=== PATIENT | male | born 1950 | race Caucasian/White ===

== ENCOUNTER 2017-04-22 22:22 | Emergency (ER) | payer MEDICARE, MEDICAID ==
[~2017-04-22] VITALS: Ht 193 cm; Wt 60.0 kg
[2017-04-22] MEDS ORDERED: SODIUM CHLORIDE 0.9% 1,000ML IVBOLUS ONE ×2 (22:30→23:00)
[2017-04-22] MEDS ORDERED: GABA600T2 PO (22:58)
[2017-04-22] MEDS ORDERED: TIOT18CA INH (22:58)
[2017-04-22] MEDS ORDERED: ALBU8.5H3 INH (22:58)
[2017-04-22] MEDS ORDERED: FLUT1DIS3 INH (22:58)
[2017-04-22] MEDS ORDERED: NITR4.1S2 TL (22:58)
[2017-04-22] MEDS ORDERED: OXYC30TA PO (22:58)
[2017-04-22] MEDS ORDERED: OXYC-229 PO (22:58)
[2017-04-22] MEDS ORDERED: CARI350T PO (22:58)
[2017-04-22] MEDS ORDERED: AZITHROMYCIN 500 MG in SODIUM CHLORIDE 0.9% 250 ML IV ONE (23:00)
[2017-04-22] MEDS ORDERED: ACETAMINOPHEN 325 MG TABLET PO ONE (23:00)
[2017-04-22] MEDS ORDERED: CEFTRIAXONE PMX 1GM/50ML 50 ML IV ONE (23:00)
[2017-04-22 23:16] LABS: BLOOD UREA NITROGEN 19 mg/dL (7-18)
[2017-04-22 23:22] LABS: IS PT STATUS REG ER OR PRE ER? YES
[2017-04-23] MEDS ORDERED: MORPHINE SULFATE 4 MG/ML, 1ML ONE (00:29)
[2017-04-23] MEDS ORDERED: morphine SULFATE 10 MG/ML, 1ML IVPush ONE (00:30)
[2017-04-23 01:56] VITALS: BP 98/66
== END 2017-04-23 02:00 | disposition left against medical advice (07) ==
LOC: ED 22:50
DX: J15.9 Unspecified bacterial pneumonia (principal); D72.829 Elevated white blood cell count, unspecified; J44.9 Chronic obstructive pulmonary disease, unspecified; G89.29 Other chronic pain; M54.9 Dorsalgia, unspecified; Z90.49 Acquired absence of other specified parts of digestive tract; Z88.0 Allergy status to penicillin; F17.200 Nicotine dependence, unspecified, uncomplicated
CPT/HCPCS: 36415; 71010; 80048; 82040; 83605; 84145; 84484; 85025; 87040; 93005; 96365; 96367; 96375; 99285; J0456; J0696; J2270; J7030; J7050

== ENCOUNTER 2017-08-22 19:22 | Emergency (ER) | payer MEDICARE, MEDICAID ==
[~2017-08-22] VITALS: Ht 193 cm; Wt 63.6 kg
[~2017-08-22 19:22] MED LIST: ALBU8.5H8 INH; CARI350T PO; FLUT1DIS3 INH; GABA600T2 PO; NITR4.1S2 TL; OXYC-302 PO; OXYC-307 PO; OXYC30TA PO; TIOT18CA INH
[2017-08-22 19:26] VITALS: BP 115/73
== END 2017-08-22 19:38 | disposition left against medical advice (07) ==
LOC: ED 19:32
DX: R06.02 Shortness of breath (principal); Z53.21 Procedure and treatment not carried out due to patient leaving prior to being seen by health care provider

== ENCOUNTER 2017-11-29 21:42 | Emergency (ER) | payer MEDICARE, MEDICAID ==
[~2017-11-29] VITALS: Ht 193 cm; Wt 68.0 kg
[2017-11-29] MEDS ORDERED: SODIUM CHLORIDE 0.9% 1,000ML IVBOLUS ONE (22:30)
[2017-11-29 22:50] LABS: BASOPHILS # (AUTO) 0.03 x10^3/uL (0-0.1); BASOPHILS % (AUTO) 0 % (0-1); EOSINOPHILS # (AUTO) 0.05 x10^3/uL (0-0.4); EOSINOPHILS % (AUTO) 1 % (1-7); LYMPHOCYTES # (AUTO) 0.97 x10^3/uL (1-3.4); LYMPHOCYTES % (AUTO) 13 % (22-44); MD NO; MEAN CORPUSCULAR HEMOGLOBIN 32.5 pg (27.5-34.5); MEAN CORPUSCULAR HGB CONC 33.2 g/dL (33.2-36.2); MEAN CORPUSCULAR VOLUME 97.9 fL (81-97); MEAN PLATELET VOLUME 8.7 fL (7.4-10.4); MONOCYTES # (AUTO) 0.45 x10^3/uL (0.2-0.8); MONOCYTES % (AUTO) 6 % (2-9); NEUTROPHILS # (AUTO) 6.22 x10^3/uL (1.8-6.8); NEUTROPHILS % (AUTO) 81 % (42-75); PLATELET COUNT 138 x10^3/uL (130-400); RED BLOOD COUNT 4.35 x10^6/uL (4.38-5.82); RED CELL DISTRIBUTION WIDTH 15.7 % (9.4-14.8)
[2017-11-29] MEDS ORDERED: CEFTRIAXONE PMX 1GM/50ML 50 ML ONE (22:54)
[2017-11-29 23:00] VITALS: BP 112/75
[2017-11-29] MEDS ORDERED: CEFTRIAXONE PMX 1GM/50ML 50 ML IV ONE (23:00)
[2017-11-29] MEDS ORDERED: AZITHROMYCIN 500 MG in SODIUM CHLORIDE 0.9% 250 ML IV ONE (23:00)
[2017-11-29 23:01] LABS: ALANINE AMINOTRANSFERASE 14 U/L (12-78); ALBUMIN 3.3 g/dL (3.4-5.0); ANION GAP 7 mmol/L (5-15); CALCIUM 8.2 mg/dL (8.5-10.1); CHLORIDE 104 mmol/L (98-107); CREATININE 0.87 mg/dL (0.7-1.3)
[2017-11-29 23:06] LABS: ALKALINE PHOSPHATASE 44 U/L (45-117); BILIRUBIN,TOTAL 0.4 mg/dL (0.2-1.0); TOTAL PROTEIN 6.6 g/dL (6.4-8.2); TROPONIN I < 0.015 ng/mL (0.000-0.045)
== END 2017-11-30 00:29 | disposition home or self-care (01) ==
LOC: ED 23:06
DX: J44.9 Chronic obstructive pulmonary disease, unspecified (principal); J15.9 Unspecified bacterial pneumonia; G89.29 Other chronic pain; Z90.49 Acquired absence of other specified parts of digestive tract; Z88.0 Allergy status to penicillin; Z79.82 Long term (current) use of aspirin; Z99.81 Dependence on supplemental oxygen
CPT/HCPCS: 36415; 71045; 80053; 83605; 84145; 84484; 85025; 87040; 93005; 96365; 96368; 99285; J0456; J0696; J7030; J7050

== ENCOUNTER 2018-02-02 12:24 | Emergency (ER) | payer MEDICARE, MEDICAID ==
[~2018-02-02] VITALS: Ht 193 cm; Wt 68.0 kg
[~2018-02-02 12:24] MED LIST changes: +ASPI-621 PO; +TAMS-11 PO
[2018-02-02 13:17] LABS: BASOPHILS # (AUTO) 0.05 x10^3/uL (0-0.1); BASOPHILS % (AUTO) 1 % (0-1); EOSINOPHILS # (AUTO) 0.05 x10^3/uL (0-0.4); EOSINOPHILS % (AUTO) 1 % (1-7); LYMPHOCYTES # (AUTO) 1.78 x10^3/uL (1-3.4); LYMPHOCYTES % (AUTO) 23 % (22-44); MD NO; MEAN CORPUSCULAR HEMOGLOBIN 32.3 pg (27.5-34.5); MEAN CORPUSCULAR HGB CONC 33.1 g/dL (33.2-36.2); MEAN CORPUSCULAR VOLUME 97.4 fL (81-97); MEAN PLATELET VOLUME 8.2 fL (7.4-10.4); MONOCYTES # (AUTO) 0.52 x10^3/uL (0.2-0.8); MONOCYTES % (AUTO) 7 % (2-9); NEUTROPHILS # (AUTO) 5.19 x10^3/uL (1.8-6.8); NEUTROPHILS % (AUTO) 68 % (42-75); PLATELET COUNT 221 x10^3/uL (130-400); RED BLOOD COUNT 4.45 x10^6/uL (4.38-5.82); RED CELL DISTRIBUTION WIDTH 14.8 % (9.4-14.8)
[2018-02-02 13:30] LABS: ALANINE AMINOTRANSFERASE 16 U/L (12-78); ALBUMIN 3.1 g/dL (3.4-5.0); ANION GAP 5 mmol/L (5-15); CALCIUM 8.6 mg/dL (8.5-10.1); CHLORIDE 104 mmol/L (98-107); CREATININE 1.07 mg/dL (0.7-1.3)
[2018-02-02] MEDS ORDERED: OXYcodone/APAP 10/325MG TABLET PO ONE (13:30)
[2018-02-02] MEDS ORDERED: ASPIRIN 81 MG TABLET CHEW PO ONE (13:30)
[2018-02-02 13:34] LABS: ALKALINE PHOSPHATASE 55 U/L (45-117); BILIRUBIN,TOTAL 0.8 mg/dL (0.2-1.0); TOTAL PROTEIN 6.6 g/dL (6.4-8.2); TROPONIN I < 0.015 ng/mL (0.000-0.045)
[2018-02-02] MEDS ORDERED: ASPIRIN 81 MG TABLET CHEW ONE (13:42)
[2018-02-02] MEDS ORDERED: OXYcodone/APAP 10/325MG TABLET ONE (13:42)
[2018-02-02 13:52] VITALS: BP 109/68
== END 2018-02-02 15:25 | disposition home or self-care (01) ==
LOC: ED 15:19
DX: R07.89 Other chest pain (principal); R06.02 Shortness of breath; R10.84 Generalized abdominal pain; I34.1 Nonrheumatic mitral (valve) prolapse; J44.9 Chronic obstructive pulmonary disease, unspecified; G89.29 Other chronic pain; M54.9 Dorsalgia, unspecified; Z90.49 Acquired absence of other specified parts of digestive tract
CPT/HCPCS: 36415; 71046; 80053; 83690; 83880; 84484; 85025; 93005; 99285

== ENCOUNTER 2018-02-14 22:51 | Inpatient (IN) | payer MEDICARE, MEDICAID ==
[~2018-02-14] VITALS: Ht 193 cm; Wt 68.0 kg
[2018-02-14] MEDS ORDERED: SODIUM CHLORIDE FLUSH 10ML SYR IVF ONE (23:30)
[2018-02-14 23:41] LABS: BASOPHILS # (AUTO) 0.13 x10^3/uL (0-0.1); BASOPHILS % (AUTO) 1 % (0-1); EOSINOPHILS # (AUTO) 0.02 x10^3/uL (0-0.4); EOSINOPHILS % (AUTO) 0 % (1-7); LYMPHOCYTES # (AUTO) 3.16 x10^3/uL (1-3.4); LYMPHOCYTES % (AUTO) 28 % (22-44); MD NO; MEAN CORPUSCULAR HEMOGLOBIN 32.4 pg (27.5-34.5); MEAN PLATELET VOLUME 8.4 fL (7.4-10.4); MONOCYTES # (AUTO) 1.01 x10^3/uL (0.2-0.8); MONOCYTES % (AUTO) 9 % (2-9); NEUTROPHILS # (AUTO) 7.12 x10^3/uL (1.8-6.8); NEUTROPHILS % (AUTO) 62 % (42-75); PLATELET COUNT 221 x10^3/uL (130-400); RED BLOOD COUNT 4.26 x10^6/uL (4.38-5.82); RED CELL DISTRIBUTION WIDTH 14.9 % (9.4-14.8)
[2018-02-14 23:52] LABS: ALANINE AMINOTRANSFERASE 13 U/L (12-78); ALBUMIN 3.4 g/dL (3.4-5.0); ANION GAP 4 mmol/L (5-15); CALCIUM 8.7 mg/dL (8.5-10.1); CHLORIDE 107 mmol/L (98-107)
[2018-02-14 23:56] LABS: CREATININE 0.89 mg/dL (0.7-1.3)
[2018-02-14 23:57] LABS: ALKALINE PHOSPHATASE 52 U/L (45-117); BILIRUBIN,TOTAL 0.4 mg/dL (0.2-1.0); TOTAL PROTEIN 6.8 g/dL (6.4-8.2); TROPONIN I < 0.015 ng/mL (0.000-0.045)
[2018-02-15] MEDS ORDERED: OXYcodone/APAP 10/325MG TABLET PO ONE
[2018-02-15] MEDS ORDERED: OXYcodone/APAP 10/325MG TABLET ONE (00:03)
[2018-02-15] MEDS ORDERED: SODIUM CHLORIDE 0.9% 1,000ML IVBOLUS ONE (00:30)
[2018-02-15] MEDS ORDERED: SODIUM CHLORIDE FLUSH 10ML SYR IVF PRN (00:30)
[2018-02-15] MEDS ORDERED: METOPROLOL 1 MG/ML, 5ML ONE (00:32)
[2018-02-15] MEDS ORDERED: METOPROLOL 1 MG/ML, 5ML IVPush ONE (01:00)
[2018-02-15] MEDS ORDERED: ONDANSETRON ODT 4 MG PO PRN (01:00)
[2018-02-15] MEDS ORDERED: GUAIFENESIN/DM 200-20MG, 10ML UDC PO PRN (01:00)
[2018-02-15] MEDS ORDERED: ACETAMINOPHEN 325 MG TABLET PO PRN (01:00)
[2018-02-15] MEDS ORDERED: ALBUTEROL SULFATE 2.5 MG/3 ML HHN SCH (01:00)
[2018-02-15] MEDS ORDERED: hydrALAzine 20 MG/ML, 1ML IVPush PRN (01:00)
[2018-02-15 01:16] VITALS: BP 119/77
[2018-02-15] MEDS: SODIUM CHLORIDE 0.9% 1,000 ML IV SCH ×3 (01:54→21:51)
[2018-02-15] MEDS: ENOXAPARIN 40 MG/0.4 ML SQ SCH (01:57)
[2018-02-15] MEDS: methylPREDNISolone SOD SUCC 125 MG/2 ML IVPush SCH ×4 (01:57→19:17)
[2018-02-15] MEDS: GABAPENTIN 300 MG CAPSULE PO SCH ×4 (01:57→20:04)
[2018-02-15] MEDS: NICOTINE 21 MG/24 HR PATCH.TD24 TD SCH (01:58)
[2018-02-15] MEDS ORDERED: ALBUTEROL/IPRATROPIUM 2.5MG/0.5MG, 3 ML NPPB PRN (02:00)
[2018-02-15] MEDS: ASPIRIN 81 MG TABLET EC PO SCH (06:23)
[2018-02-15] MEDS: OXYcodone/APAP 10/325MG TABLET PO PRN ×3 (06:24→21:50)
[2018-02-15 07:15] VITALS: BP 97/34
[2018-02-15] MEDS: ALBUTEROL/IPRATROPIUM 2.5MG/0.5MG, 3 ML NPPB SCH ×4 (08:03→20:00)
[2018-02-15] MEDS ORDERED: IPRATROPIUM 0.5 MG/2.5 ML INHA HHN SCH (09:00)
[2018-02-15] MEDS: POLYETHYLENE GLYCOL 17 GM PACKET PO SCH (09:02)
[2018-02-15] MEDS: TAMSULOSIN 0.4 MG CAP.ER.24H PO SCH (09:02)
[2018-02-15 12:19] VITALS: BP 94/55
[2018-02-15 16:17] VITALS: BP 93/57
[2018-02-15 20:02] VITALS: BP 98/64
[2018-02-16 01:24] VITALS: BP 96/49
[2018-02-16] MEDS: methylPREDNISolone SOD SUCC 125 MG/2 ML IVPush SCH (01:28)
[2018-02-16] MEDS: ENOXAPARIN 40 MG/0.4 ML SQ SCH (01:28)
[2018-02-16] MEDS: OXYcodone/APAP 10/325MG TABLET PO PRN ×4 (01:28→14:51)
[2018-02-16] MEDS: NICOTINE 21 MG/24 HR PATCH.TD24 TD SCH (01:28)
[2018-02-16 05:30] VITALS: BP 101/66
[2018-02-16 05:33] LABS: ANION GAP 4 mmol/L (5-15); CALCIUM 7.7 mg/dL (8.5-10.1); CHLORIDE 109 mmol/L (98-107)
[2018-02-16 05:35] LABS: CREATININE 0.75 mg/dL (0.7-1.3)
[2018-02-16 06:13] VITALS: BP 96/55
[2018-02-16 06:13] LABS: BASOPHILS # (AUTO) 0.02 x10^3/uL (0-0.1); BASOPHILS % (AUTO) 0 % (0-1); EOSINOPHILS % (AUTO) 0 % (1-7); LYMPHOCYTES # (AUTO) 1.19 x10^3/uL (1-3.4); LYMPHOCYTES % (AUTO) 9 % (22-44); MD NO; MEAN CORPUSCULAR HEMOGLOBIN 32.1 pg (27.5-34.5); MEAN CORPUSCULAR HGB CONC 32.9 g/dL (33.2-36.2); MEAN CORPUSCULAR VOLUME 97.7 fL (81-97); MEAN PLATELET VOLUME 8.7 fL (7.4-10.4); MONOCYTES # (AUTO) 0.55 x10^3/uL (0.2-0.8); MONOCYTES % (AUTO) 4 % (2-9); NEUTROPHILS # (AUTO) 11.94 x10^3/uL (1.8-6.8); NEUTROPHILS % (AUTO) 87 % (42-75); PLATELET COUNT 195 x10^3/uL (130-400); RED BLOOD COUNT 3.54 x10^6/uL (4.38-5.82); RED CELL DISTRIBUTION WIDTH 14.8 % (9.4-14.8)
[2018-02-16] MEDS: ASPIRIN 81 MG TABLET EC PO SCH (06:14)
[2018-02-16] MEDS: SODIUM CHLORIDE 0.9% 1,000 ML IV SCH (06:51)
[2018-02-16 07:06] VITALS: BP 98/60
[2018-02-16] MEDS: ALBUTEROL/IPRATROPIUM 2.5MG/0.5MG, 3 ML NPPB SCH ×3 (07:21→13:57)
[2018-02-16] MEDS ORDERED: methylPREDNISolone SOD SUCC 40 MG/ML IVPush SCH (09:00)
[2018-02-16] MEDS: GABAPENTIN 300 MG CAPSULE PO SCH (09:21)
[2018-02-16] MEDS: TAMSULOSIN 0.4 MG CAP.ER.24H PO SCH (09:22)
[2018-02-16] MEDS: POLYETHYLENE GLYCOL 17 GM PACKET PO SCH (09:23)
[2018-02-16] MEDS ORDERED: METH4TAB2 PO (12:12)
[2018-02-16] MEDS ORDERED: NICO-487 TD (12:12)
[2018-02-16 12:52] VITALS: BP 106/61
== END 2018-02-16 15:05 | disposition home or self-care (01) | DRG 189 ==
LOC: ED 23:59 → EDIP 02-15 00:20 → SUATTDRO 02-15 00:36 → 5SO 02-15 01:13 → DCLOUNGE 02-16 14:54
PROVIDERS: ADMIT Hospitalist; ATTEND Hospitalist
DX: J96.21 Acute and chronic respiratory failure with hypoxia (principal); Z99.81 Dependence on supplemental oxygen; I47.1 Supraventricular tachycardia; J44.1 Chronic obstructive pulmonary disease with (acute) exacerbation; F17.210 Nicotine dependence, cigarettes, uncomplicated; R91.1 Solitary pulmonary nodule; G89.29 Other chronic pain; I34.1 Nonrheumatic mitral (valve) prolapse; Z79.899 Other long term (current) drug therapy; Z90.49 Acquired absence of other specified parts of digestive tract
CPT/HCPCS: 36415; 71045; 80048; 80053; 83880; 84484; 85025; 93005; 94640; 99285; J1650; J7620; J2920; J2930; J7030; J7512

== ENCOUNTER 2018-04-06 14:15 | Emergency (ER) | payer MEDICARE, MEDICAID ==
[~2018-04-06] VITALS: Ht 193 cm; Wt 52.5 kg
[~2018-04-06 14:15] MED LIST changes: +METH4TAB2 PO; +NICO-487 TD
[2018-04-06] MEDS ORDERED: ALBUTEROL/IPRATROPIUM 2.5MG/0.5MG, 3 ML ONE (14:43)
[2018-04-06 14:56] LABS: BASOPHILS % (AUTO) 1 % (0-1); EOSINOPHILS # (AUTO) 0.15 x10^3/uL (0-0.4); EOSINOPHILS % (AUTO) 2 % (1-7); LYMPHOCYTES # (AUTO) 1.72 x10^3/uL (1-3.4); LYMPHOCYTES % (AUTO) 21 % (22-44); MD NO; MEAN CORPUSCULAR HEMOGLOBIN 32.8 pg (27.5-34.5); MEAN CORPUSCULAR HGB CONC 33.5 g/dL (33.2-36.2); MEAN PLATELET VOLUME 9.5 fL (7.4-10.4); MONOCYTES # (AUTO) 0.68 x10^3/uL (0.2-0.8); MONOCYTES % (AUTO) 8 % (2-9); NEUTROPHILS # (AUTO) 5.49 x10^3/uL (1.8-6.8); NEUTROPHILS % (AUTO) 67 % (42-75); PLATELET COUNT 146 x10^3/uL (130-400); RED BLOOD COUNT 3.97 x10^6/uL (4.38-5.82); RED CELL DISTRIBUTION WIDTH 14.1 % (9.4-14.8)
[2018-04-06] MEDS ORDERED: ALBUTEROL SULFATE 2.5 MG/3 ML NPPB ONE (15:00)
[2018-04-06 15:06] LABS: ALBUMIN 3.4 g/dL (3.4-5.0); ANION GAP 8 mmol/L (5-15); CALCIUM 8.5 mg/dL (8.5-10.1); CHLORIDE 109 mmol/L (98-107)
[2018-04-06 15:11] LABS: ALANINE AMINOTRANSFERASE 16 U/L (12-78); ALKALINE PHOSPHATASE 48 U/L (45-117); BILIRUBIN,TOTAL 0.7 mg/dL (0.2-1.0); CREATININE 0.86 mg/dL (0.7-1.3); TOTAL PROTEIN 6.2 g/dL (6.4-8.2); TROPONIN I < 0.015 ng/mL (0.000-0.045)
[2018-04-06 16:54] VITALS: BP 94/46
== END 2018-04-06 17:06 | disposition home or self-care (01) ==
LOC: ED 14:56
DX: J43.8 Other emphysema (principal); G89.29 Other chronic pain; F17.210 Nicotine dependence, cigarettes, uncomplicated
CPT/HCPCS: 36415; 71045; 80053; 84484; 85025; 93005; 94640; 99285; J7512; J7613

== ENCOUNTER 2018-08-18 09:29 | Emergency (ER) | payer MEDICARE, MEDICAID ==
[~2018-08-18] VITALS: Ht 193 cm; Wt 67.7 kg
[~2018-08-18 09:29] MED LIST changes: -ASPI-621 PO; +ASPI81TA45 PO; +AZIT250T PO; +CEFD300C37 PO; +GUAI600T31 PO; +HYDR-3307 PO; +PRED20TA PO; +digoxin PO; +morphine PO
[2018-08-18] MEDS ORDERED: ONDANSETRON ODT 4 MG ONE (10:10)
[2018-08-18 10:29] LABS: BASOPHILS # (AUTO) 0.03 x10^3/uL (0-0.1); BASOPHILS % (AUTO) 0 % (0-1); EOSINOPHILS # (AUTO) 0.32 x10^3/uL (0-0.4); EOSINOPHILS % (AUTO) 4 % (1-7); LYMPHOCYTES # (AUTO) 1.59 x10^3/uL (1-3.4); LYMPHOCYTES % (AUTO) 22 % (22-44); MD NO; MEAN CORPUSCULAR HEMOGLOBIN 31.6 pg (27.5-34.5); MEAN CORPUSCULAR HGB CONC 32.5 g/dL (33.2-36.2); MEAN CORPUSCULAR VOLUME 97.2 fL (81-97); MEAN PLATELET VOLUME 9.6 fL (7.4-10.4); MONOCYTES # (AUTO) 0.58 x10^3/uL (0.2-0.8); MONOCYTES % (AUTO) 8 % (2-9); NEUTROPHILS # (AUTO) 4.61 x10^3/uL (1.8-6.8); NEUTROPHILS % (AUTO) 65 % (42-75); PLATELET COUNT 146 x10^3/uL (130-400); RED BLOOD COUNT 4.02 x10^6/uL (4.38-5.82); RED CELL DISTRIBUTION WIDTH 14.9 % (9.4-14.8)
[2018-08-18] MEDS ORDERED: ONDANSETRON ODT 4 MG PO ONE (10:30)
[2018-08-18 10:38] LABS: INTERNATIONAL NORMALIZED RATIO 0.99 (0.93-1.1); PROTHROMBIN TIME 10.5 Seconds (9.6-11.5)
[2018-08-18 10:41] LABS: ALBUMIN 3.4 g/dL (3.4-5.0); ANION GAP 11 mmol/L (5-15); CALCIUM 8.3 mg/dL (8.5-10.1); CHLORIDE 108 mmol/L (98-107); CREATININE 0.93 mg/dL (0.7-1.3)
[2018-08-18 10:44] LABS: TROPONIN I < 0.015 ng/mL (0.000-0.045)
[2018-08-18 12:27] VITALS: BP 101/57
== END 2018-08-18 12:29 | disposition home or self-care (01) ==
LOC: ED 12:23
DX: J18.1 Lobar pneumonia, unspecified organism (principal); J44.1 Chronic obstructive pulmonary disease with (acute) exacerbation; F17.200 Nicotine dependence, unspecified, uncomplicated; Z72.9 Problem related to lifestyle, unspecified; Z95.2 Presence of prosthetic heart valve
CPT/HCPCS: 36415; 71045; 80048; 80162; 82040; 83880; 84145; 84484; 85025; 85610; 85730; 93005; 99284; Q0162

== ENCOUNTER 2018-10-16 13:06 | Inpatient (IN) | payer MEDICARE, MEDICAID ==
[~2018-10-16] VITALS: Ht 193 cm; Wt 61.9 kg
[~2018-10-16 13:06] MED LIST changes: -GABA600T2 PO; +GABA600T7 PO
[2018-10-16] MEDS ORDERED: DIGO125T PO (13:34)
[2018-10-16] MEDS ORDERED: TAMS0.4C2 PO (13:34)
[2018-10-16] MEDS ORDERED: TIOT18CA INH (13:34)
[2018-10-16] MEDS ORDERED: ALBU1.25 NEB (13:34)
[2018-10-16] MEDS ORDERED: ACETAMINOPHEN 325 MG TABLET ONE (13:53)
[2018-10-16] MEDS ORDERED: ACETAMINOPHEN 325 MG TABLET PO ONE (14:00)
[2018-10-16] MEDS ORDERED: SODIUM CHLORIDE FLUSH 10ML SYR IVF ONE (14:00)
[2018-10-16 14:12] LABS: MEAN CORPUSCULAR HEMOGLOBIN 31.4 pg (27.5-34.5); MEAN CORPUSCULAR HGB CONC 32.7 g/dL (33.2-36.2); MEAN PLATELET VOLUME 9.5 fL (7.4-10.4); PLATELET COUNT 176 x10^3/uL (130-400); RED CELL DISTRIBUTION WIDTH 14.3 % (9.4-14.8)
[2018-10-16 14:22] LABS: ALANINE AMINOTRANSFERASE 16 U/L (12-78); ALBUMIN 3.2 g/dL (3.4-5.0); ANION GAP 5 mmol/L (5-15); CALCIUM 9.2 mg/dL (8.5-10.1); CHLORIDE 101 mmol/L (98-107); CREATININE 0.89 mg/dL (0.7-1.3)
[2018-10-16 14:24] LABS: ALKALINE PHOSPHATASE 67 U/L (45-117); BILIRUBIN,TOTAL 0.9 mg/dL (0.2-1.0); TOTAL PROTEIN 7.6 g/dL (6.4-8.2)
[2018-10-16] MEDS ORDERED: AZITHROMYCIN 500 MG in SODIUM CHLORIDE 0.9% 250 ML IV ONE (14:30)
[2018-10-16] MEDS ORDERED: SODIUM CHLORIDE 0.9%, 500ML IVBOLUS ONE (14:30)
[2018-10-16] MEDS ORDERED: ALBUTEROL/IPRATROPIUM 2.5MG/0.5MG, 3 ML NPPB ONE (14:30)
[2018-10-16] MEDS ORDERED: CEFTRIAXONE PMX 1GM/50ML 50 ML IV ONE (14:30)
--- NOTE | 2018-10-16 14:30 | NUR ---
LATE ENTRY. PT ARRIVES TO ED WITH C/O OF COUGH AND PAIN X 1 WEEK WITH NO RELIEF. WAS TOLD HE HAD PNEUMONIA AT PCP AND PLACED ON ABX BUT HAS HAD NO RELIEF. PT IS CHRONIC SMOKER AND DRINKER AND HAS POOR HEALTH COMPLIANCE. PT ON ARRIVAL IS HYPOXIC BUT IS SUPPOSE TO BE ON HOME O2. PT REPORTS "I JUST DONT WEAR IT WHEN IM OUT". PT ON ARRIVAL REPORTS THAT HOME IS CURRENTLY INFESTED WITH BED BUGS SO PAITIENT PLACED ON ISOLATION AT THIS TIME. PT CONNECTED TO ALL MONITORS AND CALL LIGHT IN REACH. AWIATING FURTHER ORDERS.
[2018-10-16] MEDS ORDERED: CEFTRIAXONE PMX 1GM/50ML 50 ML ONE (14:35)
[2018-10-16] MEDS ORDERED: ALBUTEROL/IPRATROPIUM 2.5MG/0.5MG, 3 ML ONE (14:41)
[2018-10-16] MEDS ORDERED: SODIUM CHLORIDE 0.9% 1,000 ML IV SCH (14:41)
[2018-10-16 14:46] LABS: BASOPHILS # (AUTO) 0.07 x10^3/uL (0-0.1); BASOPHILS % (AUTO) 1 % (0-1); EOSINOPHILS # (AUTO) 0.01 x10^3/uL (0-0.4); EOSINOPHILS % (AUTO) 0 % (1-7); LYMPHOCYTES # (AUTO) 1.27 x10^3/uL (1-3.4); LYMPHOCYTES % (AUTO) 9 % (22-44); MD SCAN; MONOCYTES # (AUTO) 1.01 x10^3/uL (0.2-0.8); MONOCYTES % (AUTO) 7 % (2-9); NEUTROPHILS # (AUTO) 11.43 x10^3/uL (1.8-6.8); NEUTROPHILS % (AUTO) 83 % (42-75)
[2018-10-16 14:47] LABS: INTERNATIONAL NORMALIZED RATIO 1.01 (0.93-1.1); PROTHROMBIN TIME 10.7 Seconds (9.6-11.5)
[2018-10-16 14:58] LABS: TROPONIN I < 0.015 ng/mL (0.000-0.045)
[2018-10-16] MEDS ORDERED: CEFTRIAXONE 1,000 MG in SODIUM CHLORIDE 0.9% 50 ML IVPB SCH (15:00)
[2018-10-16] MEDS ORDERED: methylPREDNISolone SOD SUCC 40 MG/ML IVPush SCH (15:00)
[2018-10-16] MEDS ORDERED: DEXTROSE 50%, 50ML SYRINGE IVPush PRN (15:00)
[2018-10-16] MEDS ORDERED: SODIUM CHLORIDE 0.9% 1,000ML IVBOLUS ONE (15:00)
[2018-10-16] MEDS ORDERED: AZITHROMYCIN 500 MG in SODIUM CHLORIDE 0.9% 250 ML IV SCH (15:00)
[2018-10-16] MEDS ORDERED: ONDANSETRON ODT 4 MG PO PRN (15:00)
[2018-10-16] MEDS ORDERED: DOCUSATE 100 MG CAPSULE PO PRN (15:00)
[2018-10-16] MEDS ORDERED: PHARMACY MAY ADJ FOR RENAL FX MC PRN (15:00)
[2018-10-16] MEDS ORDERED: ACETAMINOPHEN 325 MG TABLET PO PRN (15:00)
[2018-10-16] MEDS ORDERED: DEXTROSE 4 GM TAB.CHEW PO PRN (15:00)
[2018-10-16] MEDS ORDERED: GLUCAGON 1 MG IM PRN (15:00)
[2018-10-16] MEDS ORDERED: PHARMACY MAY ADJ FOR RENAL FX MC SCH (15:00)
[2018-10-16] MEDS: HEPARIN 5,000 UNITS/ML, 1ML INJ SCH ×2 (15:00→23:00)
[2018-10-16] MEDS ORDERED: SODIUM CHLORIDE 0.9% 1,000ML IV ONE (15:00)
--- NOTE | 2018-10-16 15:00 | NUR ---
PT MEDICATED PER EMAR. PT ON ISOLATION FOR BEDBUGS.
[2018-10-16] MEDS ORDERED: HEPARIN 5,000 UNITS/ML, 1ML ONE (15:37)
--- NOTE | 2018-10-16 16:14 | NUR ---
REPEAT EKG ACQUIRED, PT HAVING MULTIPLE PVCS AND PACS. AWARE.
--- NOTE | 2018-10-16 17:42 | NUR ---
PT DECONTAMINATED, PT UNABLE TO SHOWER HE IS WEAK AT THIS TIME AND UNABLE TO STAND. HOWEVER PT STRIPPED OF ALL CLOTHING AND DOUBLED BAG IN BIOHAZARD BAGS. PT INFORMED THAT THIS NEEDS TO BE DONE TO PREVET SPREADING OF BUGS. PTAGGREABLE. PT INFORMED WHEN HE FEELS BETTER AND ABLE TO STAND ON HIS FEET HE WILL HAVE TO HAVE A DECON SHOWER.
--- NOTE | 2018-10-16 18:06 | NUR ---
report to Drew moeller
--- NOTE | 2018-10-16 18:06 | NUR ---
pain meds requested from provider. pt getting showered.
--- NOTE | 2018-10-16 18:55 | NUR ---
LUNCH BREAK NOTE: SPOKE TO WINDY, TELE SUP, AND PT IS TO BE DAKOTAH UP TO TELE ROOM WITHOUT HIS WHEEL CHAIR. WHEELCHAIR WILL BE WIPED DOWN WHEN ROOM IS TERMINALLY CLEAN. IF BED BUG ISOLATED, THEN ROOM AND CHAIR WILL BE FUMIGATED. PT AGRRED WITH PLAN REGARDING HIS WHEELCHAIR.
[2018-10-16] MEDS ORDERED: OXYcodone/APAP 10/325MG TABLET PO PRN (20:00)
[2018-10-16] MEDS ORDERED: ALBUTEROL SULFATE 2.5 MG/3 ML NPPB PRN (20:30)
[2018-10-16] MEDS ORDERED: ALBUTEROL/IPRATROPIUM 2.5MG/0.5MG, 3 ML NPPB SCH (20:30)
[2018-10-16] MEDS ORDERED: SODIUM CHLORIDE FLUSH 10ML SYR IVF SCH (21:00)
[2018-10-16] MEDS ORDERED: BUDESONIDE 0.5 MG/2 ML INHA NPPB SCH (21:00)
[2018-10-16] MEDS: ALBUTEROL/IPRATROPIUM 2.5MG/0.5MG, 3 ML NPPB SCH (21:00)
[2018-10-16] MEDS: GABAPENTIN 300 MG CAPSULE PO SCH (21:11)
[2018-10-16 21:14] VITALS: BP 107/69
[2018-10-16 22:13] LABS: RAPID INFLUENZA A Negative (Negative); RAPID INFLUENZA B Negative (Negative)
[2018-10-17] MEDS ORDERED: PRED10TA PO (00:29)
[2018-10-17] MEDS ORDERED: MORP30TA3 PO (00:29)
[2018-10-17] MEDS ORDERED: OXYC-307 PO (00:29)
[2018-10-17] MEDS ORDERED: FLUT1DIS5 IH (00:29)
[2018-10-17 00:43] VITALS: BP 104/66
[2018-10-17 01:56] LABS: MICROSCOPIC AUTO
[2018-10-17] MEDS: ALBUTEROL/IPRATROPIUM 2.5MG/0.5MG, 3 ML NPPB SCH ×2 (03:20→12:30)
[2018-10-17 05:24] LABS: BASOPHILS # (AUTO) 0.01 x10^3/uL (0-0.1); BASOPHILS % (AUTO) 0 % (0-1); EOSINOPHILS % (AUTO) 0 % (1-7); LYMPHOCYTES # (AUTO) 0.61 x10^3/uL (1-3.4); LYMPHOCYTES % (AUTO) 8 % (22-44); MD NO; MEAN CORPUSCULAR HEMOGLOBIN 32.3 pg (27.5-34.5); MEAN CORPUSCULAR HGB CONC 33.5 g/dL (33.2-36.2); MEAN CORPUSCULAR VOLUME 96.3 fL (81-97); MONOCYTES # (AUTO) 0.39 x10^3/uL (0.2-0.8); MONOCYTES % (AUTO) 5 % (2-9); NEUTROPHILS # (AUTO) 6.98 x10^3/uL (1.8-6.8); NEUTROPHILS % (AUTO) 87 % (42-75); PLATELET COUNT 137 x10^3/uL (130-400); RED BLOOD COUNT 3.39 x10^6/uL (4.38-5.82); RED CELL DISTRIBUTION WIDTH 14.6 % (9.4-14.8)
[2018-10-17 05:31] VITALS: BP 99/54
[2018-10-17 05:36] LABS: ANION GAP 2 mmol/L (5-15); CALCIUM 8.3 mg/dL (8.5-10.1); CHLORIDE 108 mmol/L (98-107); CREATININE 0.66 mg/dL (0.7-1.3)
[2018-10-17] MEDS: HEPARIN 5,000 UNITS/ML, 1ML INJ SCH (05:53)
[2018-10-17 08:19] VITALS: BP 100/63
[2018-10-17] MEDS: GABAPENTIN 300 MG CAPSULE PO SCH (08:57)
[2018-10-17] MEDS ORDERED: TEMPLATE NON-FORMULARY MED. (Tiotropium Bromide** (Spiriva**) 18 MCG) INH SCH (09:00)
[2018-10-17] MEDS ORDERED: TAMSULOSIN 0.4 MG CAP.ER.24H PO SCH (09:00)
[2018-10-17] MEDS ORDERED: DIGOXIN 0.125 MG TABLET PO SCH (09:00)
[2018-10-17 13:02] VITALS: BP 105/63
[2018-10-17] MEDS ORDERED: CEFD300C37 PO (14:08)
[2018-10-17] MEDS ORDERED: AZIT250T89 PO (14:08)
[2018-10-17] MEDS ORDERED: ALBU8.5H8 INH (14:08)
== END 2018-10-17 16:47 | disposition home or self-care (01) | DRG 871 ==
LOC: ED 13:37 → EDIP 14:37 → 5SO 18:53
PROVIDERS: ADMIT Internal Medicine; ATTEND Internal Medicine
DX: A41.9 Sepsis, unspecified organism (principal); J18.9 Pneumonia, unspecified organism; J44.0 Chronic obstructive pulmonary disease with (acute) lower respiratory infection; R65.20 Severe sepsis without septic shock; I34.1 Nonrheumatic mitral (valve) prolapse; Z95.1 Presence of aortocoronary bypass graft; Z95.5 Presence of coronary angioplasty implant and graft; G89.29 Other chronic pain
CPT/HCPCS: 36415; 36600; 71045; 80048; 80053; 81001; 82803; 83605; 83735; 84145; 84484; 85025; 85610; 85730; 87040; 87081; 87086; 87400; 93005; 94640; 96374; 96375; 99291; G0378; J0456; J0696; J1644; J7620; J2920; J7030; J7040; J7050

== ENCOUNTER 2018-12-28 20:05 | Inpatient (IN) | payer MEDICARE, MEDICAID ==
[~2018-12-28] VITALS: Ht 193 cm; Wt 62.9 kg
[~2018-12-28 20:05] MED LIST changes: +ALBU1.25 NEB; +AZIT250T89 PO; +DIGO125T PO; +FLUT1DIS5 IH; +MORP30TA3 PO; +PRED10TA PO; +TAMS0.4C2 PO
--- NOTE | 2018-12-28 20:16 | NUR ---
BIB BY [facility] FOR SOB X 7 DAYS. ROOM AIR SAT OF 90%. REPORTS RECENT PNA W/ HOSPITALIZATION AT [facility]. DOESN'T KNOW NAME OF ABX HE WAS SENT HOME WITH. WHEEZES TO ALL MARTINEZ. REPORTS INTERMITTENT CHEST PAIN-EKG AT BEDSIDE
[2018-12-28] MEDS ORDERED: ALBUTEROL/IPRATROPIUM 2.5MG/0.5MG, 3 ML ONE (20:19)
[2018-12-28] MEDS ORDERED: ALBUTEROL/IPRATROPIUM 2.5MG/0.5MG, 3 ML NPPB ONE (20:30)
[2018-12-28] MEDS ORDERED: SODIUM CHLORIDE FLUSH 10ML SYR IVF ONE (20:30)
[2018-12-28 20:57] LABS: BASOPHILS # (AUTO) 0.05 x10^3/uL (0-0.1); BASOPHILS % (AUTO) 1 % (0-1); EOSINOPHILS # (AUTO) 0.14 x10^3/uL (0-0.4); EOSINOPHILS % (AUTO) 1 % (1-7); LYMPHOCYTES # (AUTO) 2.34 x10^3/uL (1-3.4); LYMPHOCYTES % (AUTO) 23 % (22-44); MD NO; MEAN CORPUSCULAR HEMOGLOBIN 32.5 pg (27.5-34.5); MEAN CORPUSCULAR HGB CONC 32.9 g/dL (33.2-36.2); MEAN CORPUSCULAR VOLUME 98.6 fL (81-97); MONOCYTES # (AUTO) 0.82 x10^3/uL (0.2-0.8); MONOCYTES % (AUTO) 8 % (2-9); NEUTROPHILS # (AUTO) 6.89 x10^3/uL (1.8-6.8); NEUTROPHILS % (AUTO) 67 % (42-75); PLATELET COUNT 219 x10^3/uL (130-400); RED BLOOD COUNT 4.41 x10^6/uL (4.38-5.82); RED CELL DISTRIBUTION WIDTH 15.9 % (9.4-14.8)
[2018-12-28 20:58] LABS: INTERNATIONAL NORMALIZED RATIO 0.95 (0.93-1.1)
[2018-12-28 21:00] LABS: ALANINE AMINOTRANSFERASE 19 U/L (12-78); ALBUMIN 3.9 g/dL (3.4-5.0); ANION GAP 5 mmol/L (5-15); CALCIUM 8.9 mg/dL (8.5-10.1); CHLORIDE 110 mmol/L (98-107); CREATININE 1.01 mg/dL (0.7-1.3)
[2018-12-28] MEDS ORDERED: OXYcodone/APAP 5/325MG TABLET PO ONE ×2 (21:00→21:30)
--- NOTE | 2018-12-28 21:00 | NUR ---
RT TO BEDSIDE
[2018-12-28] MEDS ORDERED: OXYcodone/APAP 10/325MG TABLET ONE (21:02)
[2018-12-28 21:05] LABS: ALKALINE PHOSPHATASE 56 U/L (45-117); BILIRUBIN,TOTAL 0.3 mg/dL (0.2-1.0); TOTAL PROTEIN 7.4 g/dL (6.4-8.2); TROPONIN I < 0.015 ng/mL (0.000-0.045)
[2018-12-28] MEDS ORDERED: OXYcodone/APAP 5/325MG TABLET ONE (21:21)
--- NOTE | 2018-12-28 21:27 | NUR ---
PATIENT REPORTS BREATHING "A LITTLE BETTER" AFTER NEBULIZER TREATMENT. LUNGS REMAINS CORASE/WHEEZY BILATERALLY. TALKING IN 5-6 WORD SENTENCES. ABLE TO TOLERATE WALKING DOWN THE ARORA TO RESTROOM W/OUT OXYGEN WITHOUT NOTICEABLE DEFICITS. MEDICATED PER EMAR-PERCOCETFOR CHRONIC BACK PAIN WHICH HE RATES AT 7/10. ON SURGICAL SUPPLIES STERILIZER W/ CALL THOMAS IN HAND/SIDE RAILS UP. WILL CONTINUE TO CLOSELY MONITOR
--- NOTE | 2018-12-28 22:15 | NUR ---
PROVIDER TO BEDSIDE TO EXPLAIN POC (ADMIT FOR COPD EXACERABTION). PATIENT AGREEABLE. RESTING COMFORTABLY ON GURNEY W/ CALL THOMAS IN HAND. GIVEN ADDITIONAL BLANKET WELL WATER/SALTINE. ESTIMATED TIMEFRAME PROVIDED
[2018-12-28] MEDS ORDERED: TIZA100P2 PO (23:57)
[2018-12-29] VITALS: BP 118/64
[2018-12-29] MEDS ORDERED: GUAIFENESIN/DM 200-20MG, 10ML UDC PO PRN (00:30)
[2018-12-29] MEDS ORDERED: POLYETHYLENE GLYCOL 17 GM PACKET PO PRN (00:30)
[2018-12-29] MEDS ORDERED: BISACODYL 10 MG SUPP PR PRN (00:30)
[2018-12-29] MEDS ORDERED: ACETAMINOPHEN 325 MG TABLET PO PRN (00:30)
[2018-12-29] MEDS ORDERED: TIZANIDINE 4MG TABLET PO PRN (00:30)
[2018-12-29] MEDS ORDERED: ONDANSETRON ODT 4 MG PO PRN (00:30)
[2018-12-29] MEDS ORDERED: ALBUTEROL SULFATE 2.5 MG/3 ML NEB PRN (00:30)
[2018-12-29] MEDS: GABAPENTIN 300 MG CAPSULE PO SCH ×4 (01:10→19:55)
[2018-12-29] MEDS: HEPARIN 5,000 UNITS/ML, 1ML SQ SCH ×3 (01:11→16:47)
[2018-12-29] MEDS: NICOTINE 21 MG/24 HR PATCH.TD24 TD SCH (01:12)
[2018-12-29 01:32] LABS: FOLATE LEVEL 11.7 ng/mL (3.1-17.5)
[2018-12-29] MEDS: methylPREDNISolone SOD SUCC 125 MG/2 ML IVPush SCH ×3 (01:32→16:48)
[2018-12-29 04:00] VITALS: BP 104/65
[2018-12-29 06:25] LABS: BASOPHILS # (AUTO) 0.01 x10^3/uL (0-0.1); BASOPHILS % (AUTO) 0 % (0-1); EOSINOPHILS % (AUTO) 0 % (1-7); LYMPHOCYTES # (AUTO) 0.51 x10^3/uL (1-3.4); LYMPHOCYTES % (AUTO) 10 % (22-44); MD NO; MEAN CORPUSCULAR HEMOGLOBIN 32.7 pg (27.5-34.5); MEAN CORPUSCULAR HGB CONC 33.5 g/dL (33.2-36.2); MEAN CORPUSCULAR VOLUME 97.6 fL (81-97); MEAN PLATELET VOLUME 9.1 fL (7.4-10.4); MONOCYTES # (AUTO) 0.03 x10^3/uL (0.2-0.8); MONOCYTES % (AUTO) 1 % (2-9); NEUTROPHILS # (AUTO) 4.73 x10^3/uL (1.8-6.8); NEUTROPHILS % (AUTO) 90 % (42-75); PLATELET COUNT 185 x10^3/uL (130-400); RED BLOOD COUNT 3.95 x10^6/uL (4.38-5.82); RED CELL DISTRIBUTION WIDTH 15.4 % (9.4-14.8)
[2018-12-29 06:30] LABS: ALANINE AMINOTRANSFERASE 16 U/L (12-78); ALBUMIN 3.1 g/dL (3.4-5.0); ANION GAP 4 mmol/L (5-15); CALCIUM 8.6 mg/dL (8.5-10.1); CHLORIDE 109 mmol/L (98-107)
[2018-12-29 06:32] LABS: ALKALINE PHOSPHATASE 46 U/L (45-117); BILIRUBIN,TOTAL 0.5 mg/dL (0.2-1.0)
[2018-12-29] MEDS: OXYcodone/APAP 10/325MG TABLET PO PRN ×2 (06:32→12:38)
[2018-12-29] MEDS: IPRATROPIUM 0.5 MG/2.5 ML INHA NPPB SCH ×4 (07:00→19:30)
[2018-12-29] MEDS: BUDESONIDE 0.5 MG/2 ML INHA NPPB SCH ×2 (07:21→19:30)
[2018-12-29 07:52] VITALS: BP 113/65
[2018-12-29] MEDS ORDERED: CYANOCOBALAMIN 1,000 MCG/ML, 1ML IM ONE (08:30)
[2018-12-29] MEDS: SENNA/DOCUSATE TABLET PO SCH (09:00)
[2018-12-29] MEDS: TAMSULOSIN 0.4 MG CAP.ER.24H PO SCH (09:13)
[2018-12-29] MEDS: DIGOXIN 0.125 MG TABLET PO SCH (09:15)
[2018-12-29] MEDS: SODIUM CHLORIDE FLUSH 10ML SYR IVF SCH ×2 (09:18→19:56)
[2018-12-29 13:52] VITALS: BP 130/73
[2018-12-29] MEDS ORDERED: SODIUM CHLORIDE 0.45% 1,000 ML IV SCH (16:00)
[2018-12-29 19:54] VITALS: BP 121/73
[2018-12-30] MEDS: HEPARIN 5,000 UNITS/ML, 1ML SQ SCH ×3 (00:03→15:13)
[2018-12-30] MEDS: NICOTINE 21 MG/24 HR PATCH.TD24 TD SCH (00:03)
[2018-12-30] MEDS: OXYcodone/APAP 10/325MG TABLET PO PRN ×3 (00:04→13:32)
[2018-12-30] MEDS: methylPREDNISolone SOD SUCC 125 MG/2 ML IVPush SCH ×4 (00:05→15:13)
[2018-12-30 01:49] VITALS: BP 116/68
[2018-12-30 06:19] LABS: MEAN CORPUSCULAR HEMOGLOBIN 32.5 pg (27.5-34.5); MEAN CORPUSCULAR HGB CONC 33.1 g/dL (33.2-36.2); MEAN CORPUSCULAR VOLUME 98.1 fL (81-97); MEAN PLATELET VOLUME 8.9 fL (7.4-10.4); PLATELET COUNT 180 x10^3/uL (130-400); RED BLOOD COUNT 3.73 x10^6/uL (4.38-5.82); RED CELL DISTRIBUTION WIDTH 15.5 % (9.4-14.8)
[2018-12-30 06:21] LABS: CHLORIDE 107 mmol/L (98-107)
[2018-12-30 06:30] LABS: ALANINE AMINOTRANSFERASE 13 U/L (12-78); ALBUMIN 2.8 g/dL (3.4-5.0); ALKALINE PHOSPHATASE 30 U/L (45-117); ANION GAP 5 mmol/L (5-15); BILIRUBIN,TOTAL 0.4 mg/dL (0.2-1.0); CALCIUM 8.1 mg/dL (8.5-10.1); CREATININE 0.81 mg/dL (0.7-1.3); TOTAL PROTEIN 5.7 g/dL (6.4-8.2)
[2018-12-30 06:47] LABS: BASOPHILS % (AUTO) 0 % (0-1); EOSINOPHILS # (AUTO) 0.39 x10^3/uL (0-0.4); EOSINOPHILS % (AUTO) 2 % (1-7); LYMPHOCYTES % (AUTO) 4 % (22-44); MD SCAN; MONOCYTES # (AUTO) 0.77 x10^3/uL (0.2-0.8); MONOCYTES % (AUTO) 5 % (2-9); NEUTROPHILS # (AUTO) 14.71 x10^3/uL (1.8-6.8); NEUTROPHILS % (AUTO) 89 % (42-75)
[2018-12-30] MEDS: BUDESONIDE 0.5 MG/2 ML INHA NPPB SCH (06:58)
[2018-12-30] MEDS: IPRATROPIUM 0.5 MG/2.5 ML INHA NPPB SCH ×3 (06:59→14:29)
[2018-12-30 08:31] VITALS: BP 94/60
[2018-12-30] MEDS: GABAPENTIN 300 MG CAPSULE PO SCH ×2 (09:11→15:13)
[2018-12-30] MEDS: DIGOXIN 0.125 MG TABLET PO SCH (09:13)
[2018-12-30] MEDS: SENNA/DOCUSATE TABLET PO SCH (09:13)
[2018-12-30] MEDS: TAMSULOSIN 0.4 MG CAP.ER.24H PO SCH (09:13)
[2018-12-30] MEDS: SODIUM CHLORIDE FLUSH 10ML SYR IVF SCH (09:15)
[2018-12-30 14:16] VITALS: BP 98/63
[2018-12-30] MEDS ORDERED: PRED10TA PO (17:34)
== END 2018-12-30 18:35 | disposition home or self-care (01) | DRG 191 ==
LOC: ED 21:38 → EDIP 23:02 → 4EST 23:33
PROVIDERS: ADMIT Family Medicine; ATTEND Family Medicine
DX: J44.1 Chronic obstructive pulmonary disease with (acute) exacerbation (principal); J96.10 Chronic respiratory failure, unspecified whether with hypoxia or hypercapnia; F11.20 Opioid dependence, uncomplicated; E87.2 Acidosis; N40.0 Benign prostatic hyperplasia without lower urinary tract symptoms; F17.210 Nicotine dependence, cigarettes, uncomplicated; G89.29 Other chronic pain; I34.1 Nonrheumatic mitral (valve) prolapse; D75.89 Other specified diseases of blood and blood-forming organs; Z82.49 Family history of ischemic heart disease and other diseases of the circulatory system; Z99.3 Dependence on wheelchair; Z95.1 Presence of aortocoronary bypass graft; Z87.01 Personal history of pneumonia (recurrent); Z95.5 Presence of coronary angioplasty implant and graft; Z90.49 Acquired absence of other specified parts of digestive tract; Z88.5 Allergy status to narcotic agent; Z88.8 Allergy status to other drugs, medicaments and biological substances
CPT/HCPCS: 36415; 71045; 80053; 80162; 82607; 82746; 83605; 83735; 84100; 84145; 84484; 85025; 85610; 85730; 87040; 93005; 94640; 99285; G0378; J1644; J7620; J7626; J7644; J2930; J3420; J7512

== ENCOUNTER 2019-01-21 23:29 | Inpatient (IN) | payer MEDICARE, MEDICAID ==
[~2019-01-21] VITALS: Ht 190.5 cm; Wt 60.7 kg
[~2019-01-21 23:29] MED LIST changes: +TIZA100P2 PO
[2019-01-22] MEDS ORDERED: methylPREDNISolone SOD SUCC 125 MG/2 ML IVP ONE
[2019-01-22] MEDS ORDERED: SODIUM CHLORIDE FLUSH 10ML SYR IVF ONE
[2019-01-22] MEDS ORDERED: ALBUTEROL SULFATE 2.5 MG/3 ML ONE (00:12)
[2019-01-22 00:13] LABS: BASOPHILS # (AUTO) 0.06 x10^3/uL (0-0.1); BASOPHILS % (AUTO) 1 % (0-1); EOSINOPHILS # (AUTO) 0.06 x10^3/uL (0-0.4); EOSINOPHILS % (AUTO) 1 % (1-7); LYMPHOCYTES # (AUTO) 1.64 x10^3/uL (1-3.4); LYMPHOCYTES % (AUTO) 18 % (22-44); MD NO; MEAN CORPUSCULAR HEMOGLOBIN 32.6 pg (27.5-34.5); MEAN CORPUSCULAR HGB CONC 33.1 g/dL (33.2-36.2); MEAN CORPUSCULAR VOLUME 98.7 fL (81-97); MEAN PLATELET VOLUME 8.6 fL (7.4-10.4); MONOCYTES # (AUTO) 0.78 x10^3/uL (0.2-0.8); MONOCYTES % (AUTO) 9 % (2-9); NEUTROPHILS # (AUTO) 6.43 x10^3/uL (1.8-6.8); NEUTROPHILS % (AUTO) 72 % (42-75); PLATELET COUNT 156 x10^3/uL (130-400); RED CELL DISTRIBUTION WIDTH 15.6 % (9.4-14.8)
[2019-01-22] MEDS ORDERED: OXYcodone/APAP 10/325MG TABLET ONE (00:14)
[2019-01-22] MEDS ORDERED: methylPREDNISolone SOD SUCC 125 MG/2 ML ONE (00:15)
--- NOTE | 2019-01-22 00:21 | NUR ---
RT AT BEDSIDE FOR BREATHING TX. PT TOLERATING WELL. VSS.
[2019-01-22 00:23] LABS: ALBUMIN 3.3 g/dL (3.4-5.0); ANION GAP 3 mmol/L (5-15); CALCIUM 8.2 mg/dL (8.5-10.1); CHLORIDE 114 mmol/L (98-107); CREATININE 0.86 mg/dL (0.7-1.3)
[2019-01-22 00:26] LABS: TROPONIN I < 0.015 ng/mL (0.000-0.045)
[2019-01-22] MEDS ORDERED: OXYcodone/APAP 10/325MG TABLET PO ONE (00:30)
[2019-01-22] MEDS ORDERED: DOXYCYCLINE 100 MG in DEXTROSE 5% 250 ML IV ONE (01:30)
[2019-01-22] MEDS ORDERED: ALBUTEROL/IPRATROPIUM 2.5MG/0.5MG, 3 ML HHN PRN (03:00)
[2019-01-22] MEDS ORDERED: TIZANIDINE 4MG TABLET PO PRN (03:00)
[2019-01-22] MEDS: NICOTINE 14MG/24 HR PATCH.TD24 TD SCH (03:12)
[2019-01-22] MEDS: OXYcodone/APAP 10/325MG TABLET PO PRN ×3 (03:12→19:32)
[2019-01-22 03:21] VITALS: BP 113/67
[2019-01-22] MEDS: DIGOXIN 0.125 MG TABLET PO SCH (09:00)
[2019-01-22] MEDS ORDERED: TEMPLATE NON-FORMULARY MED. (Tiotropium Bromide** (Spiriva**) 18 MCG) INH SCH (09:00)
[2019-01-22] MEDS ORDERED: AZITHROMYCIN 500 MG TABLET PO SCH (09:00)
[2019-01-22] MEDS: TAMSULOSIN 0.4 MG CAP.ER.24H PO SCH (09:01)
[2019-01-22] MEDS: GABAPENTIN 300 MG CAPSULE PO SCH ×3 (09:01→21:06)
[2019-01-22 09:04] VITALS: BP 110/68
[2019-01-22] MEDS: BUDESONIDE 0.5 MG/2 ML INHA NPPB SCH ×2 (10:32→21:20)
[2019-01-22] MEDS ORDERED: CEFTRIAXONE PMX 1GM/50ML 50 ML IV SCH (14:00)
[2019-01-22 15:35] VITALS: BP 97/63
[2019-01-22 19:25] VITALS: BP 101/66
[2019-01-22] MEDS: DOXYCYCLINE 100MG TABLET PO SCH (21:06)
[2019-01-23] MEDS: OXYcodone/APAP 10/325MG TABLET PO PRN ×2 (02:29→13:22)
[2019-01-23] MEDS: NICOTINE 14MG/24 HR PATCH.TD24 TD SCH (02:30)
[2019-01-23 02:48] VITALS: BP 105/62
[2019-01-23 05:35] LABS: CHLORIDE 111 mmol/L (98-107)
[2019-01-23 05:36] LABS: BASOPHILS # (AUTO) 0.04 x10^3/uL (0-0.1); BASOPHILS % (AUTO) 0 % (0-1); EOSINOPHILS # (AUTO) 0.08 x10^3/uL (0-0.4); EOSINOPHILS % (AUTO) 1 % (1-7); LYMPHOCYTES # (AUTO) 2.05 x10^3/uL (1-3.4); LYMPHOCYTES % (AUTO) 21 % (22-44); MD NO; MEAN CORPUSCULAR HEMOGLOBIN 32.6 pg (27.5-34.5); MEAN CORPUSCULAR HGB CONC 33.1 g/dL (33.2-36.2); MEAN CORPUSCULAR VOLUME 98.6 fL (81-97); MONOCYTES # (AUTO) 0.94 x10^3/uL (0.2-0.8); MONOCYTES % (AUTO) 10 % (2-9); NEUTROPHILS # (AUTO) 6.52 x10^3/uL (1.8-6.8); NEUTROPHILS % (AUTO) 68 % (42-75); PLATELET COUNT 136 x10^3/uL (130-400); RED BLOOD COUNT 3.77 x10^6/uL (4.38-5.82); RED CELL DISTRIBUTION WIDTH 15.6 % (9.4-14.8)
[2019-01-23 05:40] LABS: ANION GAP 4 mmol/L (5-15); CALCIUM 8.2 mg/dL (8.5-10.1); CREATININE 0.71 mg/dL (0.7-1.3)
[2019-01-23 07:32] VITALS: BP 104/63
[2019-01-23] MEDS ORDERED: methylPREDNISolone SOD SUCC 125 MG/2 ML IVPush SCH (08:30)
[2019-01-23] MEDS: GABAPENTIN 300 MG CAPSULE PO SCH (10:02)
[2019-01-23] MEDS: DIGOXIN 0.125 MG TABLET PO SCH (10:02)
[2019-01-23] MEDS: TAMSULOSIN 0.4 MG CAP.ER.24H PO SCH (10:03)
[2019-01-23] MEDS: DOXYCYCLINE 100MG TABLET PO SCH (10:11)
[2019-01-23] MEDS: BUDESONIDE 0.5 MG/2 ML INHA NPPB SCH (11:40)
[2019-01-23 12:57] VITALS: BP 114/71
== END 2019-01-23 14:00 | disposition left against medical advice (07) | DRG 189 ==
LOC: ED 01-22 02:00 → EDIP 01-22 02:01 → 4WST 01-22 02:19
PROVIDERS: ADMIT Internal Medicine; ATTEND Internal Medicine
DX: J96.20 Acute and chronic respiratory failure, unspecified whether with hypoxia or hypercapnia (principal); J44.1 Chronic obstructive pulmonary disease with (acute) exacerbation; D64.9 Anemia, unspecified; F17.200 Nicotine dependence, unspecified, uncomplicated; G89.29 Other chronic pain; M54.9 Dorsalgia, unspecified; I34.1 Nonrheumatic mitral (valve) prolapse; N40.0 Benign prostatic hyperplasia without lower urinary tract symptoms; Z79.899 Other long term (current) drug therapy; Z95.1 Presence of aortocoronary bypass graft; Z95.5 Presence of coronary angioplasty implant and graft; Z99.81 Dependence on supplemental oxygen; Z53.21 Procedure and treatment not carried out due to patient leaving prior to being seen by health care provider; Z90.49 Acquired absence of other specified parts of digestive tract
CPT/HCPCS: 36415; 71045; 71260; 80048; 82040; 83735; 83880; 84484; 85025; 93005; 94640; 96374; 96375; G0378; J0696; J7060; J7626; J2930; J7512

== ENCOUNTER 2021-05-27 17:25 | Inpatient (IN) | payer MEDICARE, MEDICAID ==
[~2021-05-27] VITALS: Ht 193 cm; Wt 56.6 kg
[~2021-05-27 17:25] MED LIST changes: +AZIT500T10 PO; +BUDE10.2 INH; -DIGO125T PO; +DIGO125T85 PO; +GUAI200T37 PO; +HYDR-3248 PO; -HYDR-3307 PO; +MORP-30 PO; -MORP30TA3 PO; -NICO-487 TD; +NICO-587 TD; -OXYC-302 PO; -OXYC-307 PO; +OXYC-501 PO; +OXYC1TAB12 PO; -OXYC30TA PO; +OXYC30TA3 PO
--- NOTE | 2021-05-27 17:29 | NUR ---
PATIENT ARRIVES WITH [facility] FROM [facility] WITH SOB HAS COPD. AFIB RVR RATE 130'S. PATIENT GIVEN DUONEB AND ALBUTUEROL ON WAY WITH [facility]. PATIENT HAS HISTORY OF COPD, AFIB. TAKES DIG
[2021-05-27] MEDS ORDERED: ALBUTEROL SULFATE 2.5 MG/3 ML ONE (17:55)
[2021-05-27] MEDS ORDERED: DILTIAZEM 5 MG/ML, 5ML ONE (17:55)
[2021-05-27] MEDS ORDERED: methylPREDNISolone SOD SUCC 125 MG/2 ML ONE (17:55)
[2021-05-27] MEDS ORDERED: PLEASE ENTER WEIGHT MC SCH (18:00)
[2021-05-27] MEDS ORDERED: SODIUM CHLORIDE FLUSH 10ML SYR IVF ONE (18:00)
[2021-05-27] MEDS ORDERED: DILTIAZEM 5 MG/ML, 5ML IV ONE (18:00)
[2021-05-27] MEDS ORDERED: ALBUTEROL SULFATE 2.5 MG/3 ML NPPB ONE (18:00)
[2021-05-27] MEDS ORDERED: methylPREDNISolone SOD SUCC 125 MG/2 ML IV ONE (18:00)
[2021-05-27 18:10] LABS: BASOPHILS % (AUTO) 0 % (0-1); EOSINOPHILS % (AUTO) 0 % (1-7); LYMPHOCYTES % (AUTO) 5 % (22-44); MEAN CORPUSCULAR HEMOGLOBIN 32.9 pg (27.5-34.5); MEAN CORPUSCULAR HGB CONC 32.6 g/dL (33.2-36.2); MEAN PLATELET VOLUME 8.9 fL (7.4-10.4); MONOCYTES % (AUTO) 8 % (2-9); NEUTROPHILS % (AUTO) 87 % (42-75); PLATELET COUNT 155 x10^3/uL (130-400); RED BLOOD COUNT 4.25 x10^6/uL (4.38-5.82); RED CELL DISTRIBUTION WIDTH 14.3 % (9.4-14.8)
[2021-05-27 18:22] LABS: ALBUMIN 3.3 g/dL (3.4-5.0); ANION GAP 4 mmol/L (5-15); CALCIUM 8.7 mg/dL (8.5-10.1); CHLORIDE 102 mmol/L (98-107)
[2021-05-27 18:28] LABS: ALANINE AMINOTRANSFERASE 13 U/L (12-78); ALKALINE PHOSPHATASE 50 U/L (45-117); BILIRUBIN,TOTAL 1.5 mg/dL (0.2-1.0); CREATININE 0.83 mg/dL (0.7-1.3); TROPONIN I < 0.015 ng/mL (0.000-0.045)
[2021-05-27] MEDS ORDERED: CEFTRIAXONE 1,000 MG in DEXTROSE 5% 50 ML IVPB ONE (18:30)
[2021-05-27] MEDS ORDERED: DEXAMETHASONE 4 MG/ML, 1ML IV ONE (18:30)
[2021-05-27] MEDS ORDERED: DOXYCYCLINE 100MG TABLET PO ONE (18:30)
[2021-05-27] MEDS ORDERED: DILTIAZEM 5 MG/ML, 5ML IVPush ONE (18:31)
[2021-05-27] MEDS ORDERED: DOXYCYCLINE 100MG TABLET ONE (18:39)
[2021-05-27] MEDS ORDERED: DEXAMETHASONE 4 MG/ML, 1ML ONE (18:39)
[2021-05-27] MEDS ORDERED: SODIUM CHLORIDE 0.9%, 500ML IVBOLUS ONE (19:00)
[2021-05-27] MEDS ORDERED: Enoxaparin 1 mg/kg protocol SQ ONE (19:00)
[2021-05-27] MEDS ORDERED: MORPHINE SULFATE 4 MG/ML, 1ML IVPush ONE (19:00)
[2021-05-27] MEDS ORDERED: DILTIAZEM 125 MG in SODIUM CHLORIDE 0.9% 100 ML IV SCH (19:00)
--- NOTE | 2021-05-27 19:04 | NUR ---
DUPLICATE MED ORDERS, GAVE DOXY AND SOLUMEDROL AND NOW SHOWING ON NOV; HANGING DILT GTT SO NOT GIVING IVP DILT. WILL LET PHARMACY KNOW
[2021-05-27] MEDS ORDERED: MORPHINE SULFATE 4 MG/ML, 1ML ONE (19:16)
[2021-05-27 19:47] LABS: D-DIMER (DIC) 1.36 ug/mlFEU (0.00-0.52); PROTIME 11.8 Seconds (9.6-11.5)
--- NOTE | 2021-05-27 19:51 | NUR ---
patient ate full dinner.
--- NOTE | 2021-05-27 20:47 | NUR ---
Aleja Gama -ex [phone]
[2021-05-27] MEDS ORDERED: ACETAMINOPHEN 650 MG SUPP PR PRN (21:00)
[2021-05-27] MEDS ORDERED: AZITHROMYCIN 500 MG TABLET PO ONE (21:00)
[2021-05-27] MEDS ORDERED: DILTIAZEM 5 MG/ML, 5ML IVPush PRN (21:00)
[2021-05-27] MEDS ORDERED: ACETAMINOPHEN 325 MG TABLET PO PRN (21:00)
--- NOTE | 2021-05-27 21:59 | NUR ---
report to naomi quintero rn. patient rtg
[2021-05-27] MEDS: ENOXAPARIN 40 MG/0.4 ML SQ SCH (22:18)
[2021-05-27 22:31] VITALS: BP 117/76
[2021-05-27] MEDS ORDERED: OXYC-501 PO (23:51)
[2021-05-28] MEDS ORDERED: ALBUTEROL HFA 90 MCG/SPRAY INH PRN (00:30)
[2021-05-28 01:24] VITALS: BP 105/65
[2021-05-28 05:21] LABS: BASOPHILS % (AUTO) 0 % (0-1); EOSINOPHILS % (AUTO) 0 % (1-7); LYMPHOCYTES % (AUTO) 4 % (22-44); MEAN CORPUSCULAR HGB CONC 33.1 g/dL (33.2-36.2); MEAN PLATELET VOLUME 9.1 fL (7.4-10.4); MONOCYTES % (AUTO) 4 % (2-9); NEUTROPHILS % (AUTO) 92 % (42-75); PLATELET COUNT 141 x10^3/uL (130-400); RED BLOOD COUNT 3.55 x10^6/uL (4.38-5.82); RED CELL DISTRIBUTION WIDTH 13.7 % (9.4-14.8)
[2021-05-28 05:35] LABS: ANION GAP 3 mmol/L (5-15); CHLORIDE 104 mmol/L (98-107); CREATININE 0.51 mg/dL (0.7-1.3)
[2021-05-28 08:40] VITALS: BP 97/55
[2021-05-28] MEDS: FLUTICASONE/VILANTEROL 200-25MCG/INH INH SCH (09:00)
[2021-05-28] MEDS ORDERED: FLUTICASONE/VILANTEROL 100-25MCG/INH INH SCH (09:00)
[2021-05-28] MEDS: AZITHROMYCIN 500 MG TABLET PO SCH (09:12)
[2021-05-28] MEDS: OXYcodone/APAP 10/325MG TABLET PO PRN ×3 (09:12→22:31)
[2021-05-28] MEDS: GABAPENTIN 300 MG CAPSULE PO SCH ×3 (09:12→21:22)
[2021-05-28] MEDS: TAMSULOSIN 0.4 MG CAP.ER.24H PO SCH (09:12)
[2021-05-28] MEDS: DIGOXIN 0.125 MG TABLET PO SCH (09:13)
[2021-05-28] MEDS: DILTIAZEM 120 MG CAP.ER.12H PO SCH ×2 (09:13→21:22)
[2021-05-28] MEDS: TIOTROPIUM BROMIDE 18 MCG/INH INH SCH (09:14)
[2021-05-28] MEDS: NICOTINE 21 MG/24 HR PATCH.TD24 TD SCH (13:35)
[2021-05-28 13:47] VITALS: BP 111/64
[2021-05-28 18:59] VITALS: BP 102/61
[2021-05-28] MEDS: ENOXAPARIN 40 MG/0.4 ML SQ SCH (21:22)
[2021-05-29 01:06] VITALS: BP 100/60
[2021-05-29] MEDS: OXYcodone/APAP 10/325MG TABLET PO PRN ×2 (06:08→14:10)
[2021-05-29 06:43] VITALS: BP 103/64
[2021-05-29 07:21] LABS: HCT (SEDRATE) 34.7 % (39.2-51.8)
[2021-05-29 07:27] LABS: BASOPHILS % (AUTO) 0 % (0-1); EOSINOPHILS % (AUTO) 0 % (1-7); LYMPHOCYTES % (AUTO) 9 % (22-44); MEAN CORPUSCULAR HEMOGLOBIN 32.9 pg (27.5-34.5); MEAN CORPUSCULAR HGB CONC 33.1 g/dL (33.2-36.2); MONOCYTES % (AUTO) 7 % (2-9); NEUTROPHILS % (AUTO) 84 % (42-75); PLATELET COUNT 162 x10^3/uL (130-400); RED BLOOD COUNT 3.46 x10^6/uL (4.38-5.82); RED CELL DISTRIBUTION WIDTH 14.1 % (9.4-14.8)
[2021-05-29 07:29] LABS: ALANINE AMINOTRANSFERASE 14 U/L (12-78); ALBUMIN 2.5 g/dL (3.4-5.0); ANION GAP 6 mmol/L (5-15); CALCIUM 8.2 mg/dL (8.5-10.1); CHLORIDE 101 mmol/L (98-107); CREATININE 0.51 mg/dL (0.7-1.3)
[2021-05-29] MEDS ORDERED: ALBUTEROL SULFATE 2.5 MG/3 ML NPPB SCH (07:30)
[2021-05-29 07:37] LABS: ALKALINE PHOSPHATASE 41 U/L (45-117); BILIRUBIN,TOTAL 0.5 mg/dL (0.2-1.0)
[2021-05-29] MEDS: NICOTINE 21 MG/24 HR PATCH.TD24 TD SCH (10:01)
[2021-05-29] MEDS: GABAPENTIN 300 MG CAPSULE PO SCH ×3 (10:01→21:06)
[2021-05-29] MEDS: TAMSULOSIN 0.4 MG CAP.ER.24H PO SCH (10:02)
[2021-05-29] MEDS: SENNA/DOCUSATE TABLET PO SCH (10:02)
[2021-05-29] MEDS: TIOTROPIUM BROMIDE 18 MCG/INH INH SCH (10:03)
[2021-05-29] MEDS: DIGOXIN 0.125 MG TABLET PO SCH (10:03)
[2021-05-29] MEDS: AZITHROMYCIN 500 MG TABLET PO SCH (10:03)
[2021-05-29] MEDS: DILTIAZEM 120 MG CAP.ER.12H PO SCH ×2 (10:03→21:05)
[2021-05-29] MEDS: FLUTICASONE/VILANTEROL 200-25MCG/INH INH SCH (10:03)
[2021-05-29] MEDS: ALBUTEROL HFA 90 MCG/SPRAY INH SCH ×4 (10:04→21:00)
[2021-05-29 12:13] VITALS: BP 96/52
[2021-05-29 19:58] VITALS: BP 112/66
[2021-05-29] MEDS: ENOXAPARIN 40 MG/0.4 ML SQ SCH (21:08)
[2021-05-30 01:02] VITALS: BP 110/67
[2021-05-30] MEDS: OXYcodone/APAP 10/325MG TABLET PO PRN ×2 (01:10→09:53)
[2021-05-30 05:33] LABS: ALANINE AMINOTRANSFERASE 19 U/L (12-78); ALBUMIN 2.5 g/dL (3.4-5.0); CALCIUM 8.2 mg/dL (8.5-10.1)
[2021-05-30 05:34] LABS: BASOPHILS % (AUTO) 0 % (0-1); EOSINOPHILS % (AUTO) 0 % (1-7); LYMPHOCYTES % (AUTO) 12 % (22-44); MEAN CORPUSCULAR HEMOGLOBIN 33.2 pg (27.5-34.5); MEAN CORPUSCULAR HGB CONC 33.4 g/dL (33.2-36.2); MEAN PLATELET VOLUME 8.8 fL (7.4-10.4); MONOCYTES % (AUTO) 8 % (2-9); NEUTROPHILS % (AUTO) 81 % (42-75); PLATELET COUNT 178 x10^3/uL (130-400); RED BLOOD COUNT 3.59 x10^6/uL (4.38-5.82)
[2021-05-30 05:40] LABS: ALKALINE PHOSPHATASE 47 U/L (45-117); BILIRUBIN,TOTAL 0.4 mg/dL (0.2-1.0); TOTAL PROTEIN 5.9 g/dL (6.4-8.2)
[2021-05-30] MEDS: ALBUTEROL HFA 90 MCG/SPRAY INH SCH ×2 (05:51→11:55)
[2021-05-30 05:59] LABS: ANION GAP 6 mmol/L (5-15); CHLORIDE 101 mmol/L (98-107)
[2021-05-30 06:48] VITALS: BP 103/76
[2021-05-30] MEDS ORDERED: ALBU8.5H8 INH (08:10)
[2021-05-30] MEDS ORDERED: DILT300C44 PO (08:10)
[2021-05-30] MEDS ORDERED: TIOT18CA INH (08:10)
[2021-05-30] MEDS ORDERED: FLUT1DIS5 IH (08:10)
[2021-05-30] MEDS ORDERED: DILTIAZEM 300 MG CAP.ER.24H PO SCH (09:00)
[2021-05-30] MEDS ORDERED: DILTIAZEM 120 MG TABLET PO SCH (09:00)
[2021-05-30] MEDS: AZITHROMYCIN 500 MG TABLET PO SCH (09:42)
[2021-05-30] MEDS: NICOTINE 21 MG/24 HR PATCH.TD24 TD SCH (09:42)
[2021-05-30] MEDS: TAMSULOSIN 0.4 MG CAP.ER.24H PO SCH (09:42)
[2021-05-30] MEDS: GABAPENTIN 300 MG CAPSULE PO SCH (09:42)
[2021-05-30] MEDS: DIGOXIN 0.125 MG TABLET PO SCH (09:42)
[2021-05-30] MEDS: SENNA/DOCUSATE TABLET PO SCH (09:42)
[2021-05-30] MEDS: FLUTICASONE/VILANTEROL 200-25MCG/INH INH SCH (09:43)
[2021-05-30] MEDS: TIOTROPIUM BROMIDE 18 MCG/INH INH SCH (09:43)
== END 2021-05-30 13:22 | disposition home or self-care (01) | DRG 193 ==
LOC: MERGE 17:25 → ED 18:30 → EDIP 18:37 → 5SO 22:17
PROVIDERS: ADMIT Internal Medicine; ATTEND Family Medicine
DX: J18.9 Pneumonia, unspecified organism (principal); J96.21 Acute and chronic respiratory failure with hypoxia; J44.1 Chronic obstructive pulmonary disease with (acute) exacerbation; D68.69 Other thrombophilia; F11.20 Opioid dependence, uncomplicated; I48.20 Chronic atrial fibrillation, unspecified; I48.92 Unspecified atrial flutter; J44.0 Chronic obstructive pulmonary disease with (acute) lower respiratory infection; Z66 Do not resuscitate; F17.200 Nicotine dependence, unspecified, uncomplicated; G89.29 Other chronic pain; I34.1 Nonrheumatic mitral (valve) prolapse; N40.0 Benign prostatic hyperplasia without lower urinary tract symptoms; M54.9 Dorsalgia, unspecified; Z20.822 Contact with and (suspected) exposure to COVID-19; Z59.0 Homelessness; Z99.81 Dependence on supplemental oxygen; Z88.5 Allergy status to narcotic agent; Z88.1 Allergy status to other antibiotic agents; Z90.49 Acquired absence of other specified parts of digestive tract; Z71.6 Tobacco abuse counseling
CPT/HCPCS: 36415; 71045; 80048; 80053; 82728; 83605; 83615; 83735; 83880; 84145; 84439; 84443; 84484; 85025; 85049; 85379; 85384; 85610; 85651; 85730; 86140; 87040; 93005; 93308; 96365; 96368; 96372; 96375; 99291; G0378; J0696; J1100; J1650; J7613; U0005; J2270; J7040; J7512; U0003